=== PATIENT | male | born 1985 | race Caucasian/White ===

== ENCOUNTER 2020-04-20 08:27 | Outpatient (CLI) | payer OTHER, SELFPAY ==
--- NOTE | 2020-05-12 09:50 | SLEEP_ITS ---
HOME SLEEP TEST DATE OF STUDY: 04/20/2020 ORDERING PHYSICIAN: Dr. Royce Perez. REASON FOR THE STUDY: KOFFI. This patient is a 34-year-old man 5 feet 6 inches tall, weighing 250 pounds with a body mass index of 40.3. He has problems waking up during the night and in the next day he is extremely tired. He has a difficult time falling asleep, difficult time waking in the morning. He has tried sleeping pills, but it just made his next day worse. He constantly snores and it is constantly loud enough that others complain about it. He occasionally awakens at night with heartburn, belching, or coughing. He occasionally awakens at night feeling short of breath. He occasionally has trouble sleeping with a cold, rarely wakes up gasping for breath at night, constantly has breathing problems at night observed by others and constantly sweats excessively at night. He occasionally notices his heart pounding or beating irregularly at night. He frequently falls asleep during the day occasionally involuntarily, occasionally while driving, rarely during physical effort. He does not have loss of muscle tone with strong emotion. He occasionally has daytime difficulties due to excessive sleepiness. He works for [employer]. He rarely feels paralyzed on waking or falling asleep and occasionally has vivid dreamlike scenes upon awakening or falling asleep. He is rarely afraid to go to sleep. He occasionally has nightmares, occasionally remembers his dreams. He constantly has racing thoughts. He occasionally feels sad, depressed, and anxious. He frequently has muscular tension. He occasionally notices parts of his body jerking and occasionally kicks at night. He occasionally has crawly achy feelings in his legs. He rarely has leg pain at night. He rarely has morning jaw pain. He frequently grinds his teeth during sleep. He frequently is bothered by pain during the day, occasionally is awakened by pain at night, frequently wakes up feeling stiff in the morning and occasionally with sore achy muscles and occasionally with pain in the neck and spine. He has fatigue, memory problems, concentration difficulties, bowel disturbances, nightmares. He goes to bed at midnight, takes a few hours to fall asleep, typically wakes twice at night, stays awake for few hours. He will listen to the Bible or Sermons or put a movie on. He wakes in the morning between 6:30 and 9 a.m. On the weekends, he will sleep in, later on Monday and Monday, he is up for latter day. He does take naps. A short nap is not refreshing. He is usually drowsy in the morning for 1 hour or longer. MEDICAL COMORBIDITIES: Diabetes, depression, acid reflux, seasonal allergies, hypothyroidism, asthma, hyperlipidemia. MEDICATIONS: Bupropion 100 mg twice a day, clonidine 0.1 mg twice a day. Lamotrigine 100 mg daily. Levothyroxine 25 mcg daily. [place] CR 450 mg daily and 300 mg h.s., pantoprazole 40 mg daily, propranolol 20 mg b.i.d., Ziprasidone 40 mg b.i.d. HABITS: Previously smoked tobacco. Caffeine, a few fountain sodas daily. No alcohol or recreational drugs. DESCRIPTION OF THE STUDY: On the Roff Sleepiness Scale, his score is 15. This was conducted as an unattended type 3 portable home sleep test using 4 channel monitoring including respiratory effort channel, snoring channel, oxygen saturation channel, and heart rate channel. This study was scored using [facility] guidelines. The duration of the test was 8 hours 4 minutes. The apnea- hypopnea index is 17, consistent with moderate obstructive sleep apnea. Oxygen desaturation index is 13. The lowest desaturation is 80%. The patient had 79 apneas, the majority of these 81% or 64 apneas were obstructive, 16% or 13 apneas were central, 3% or 2 apneas were mixed. He
== END 2020-04-20 08:28 | disposition home or self-care (01) ==
LOC: ANHCSM 08:28
PROVIDERS: Visit Provider Student in an Organized Health Care Education/Training Program
DX: G47.33 Obstructive sleep apnea (adult) (pediatric) (principal); G47.19 Other hypersomnia
CPT/HCPCS: 95806

== ENCOUNTER 2020-06-22 00:35 | Outpatient (CLI) | payer OTHER, SELFPAY ==
[2020-06-22 20:57] LABS: SARS-CoV-2 RNA PCR Negative
== END 2020-06-22 00:36 | disposition home or self-care (01) ==
LOC: ANHCOVIDDT 00:35
PROVIDERS: Visit Provider Internal Medicine Critical Care Medicine
DX: R68.89 Other general symptoms and signs (principal); Z20.828 Contact with and (suspected) exposure to other viral communicable diseases
CPT/HCPCS: 87635; C9803; U0003

== ENCOUNTER 2020-06-24 08:45 | Outpatient (CLI) | payer OTHER, SELFPAY ==
--- NOTE | 2020-07-13 13:38 | WPDSLEEPSTUD ---
Sleep Study Date of Study: 06/24/20 Ordering Provider: Royce Perez MD Interpreting Physician: Maria Victoria Ellis MD Sleep Study Type: CPAP Titration Height: 1.68 m Weight: 113.398 kg Body Mass Index: 40.3 Neck Circumference: 44.45 cm [place]: 15 Reason for Sleep Study home sleep test 04/20/2020 with with moderate obstructive sleep apnea Sleep History Marlon Olsen is a 34 year old man with KOFFI diagnosed on a home sleep test 04/20/2020 with an AHI 17, 80% of the apneas scored as obstructive. He has other complaints including uncomfortable feelings in his legs at night suggestive of restless legs syndrome. He present now for a CPAP titration. He has problems waking up during the night and in the next day he is extremely tired. He has a difficult time falling asleep, difficult time waking in the morning. He has tried sleeping pills, but it just made his next day worse. He constantly snores and it is constantly loud enough that others complain about it. He occasionally awakens at night with heartburn, belching, or coughing. He occasionally awakens at night feeling short of breath. He occasionally has trouble sleeping with a cold, rarely wakes up gasping for breath at night, constantly has breathing problems at night observed by others and constantly sweats excessively at night. He occasionally notices his heart pounding or beating irregularly at night. He frequently falls asleep during the day occasionally involuntarily, occasionally while driving, rarely during physical effort. He does not have loss of muscle tone with strong emotion. He occasionally has daytime difficulties due to excessive sleepiness. He works for [employer]. He rarely feels paralyzed on waking or falling asleep and occasionally has vivid dreamlike scenes upon awakening or falling asleep. He is rarely afraid to go to sleep. He occasionally has nightmares, occasionally remembers his dreams. He constantly has racing thoughts. He occasionally feels sad, depressed, and anxious. He frequently has muscular tension. He occasionally notices parts of his body jerking and occasionally kicks at night. He occasionally has crawly achy feelings in his legs. He rarely has leg pain at night. He rarely has morning jaw pain. He frequently grinds his teeth during sleep. He frequently is bothered by pain during the day, occasionally is awakened by pain at night, frequently wakes up feeling stiff in the morning and occasionally with sore achy muscles and occasionally with pain in the neck and spine. He has fatigue, memory problems, concentration difficulties, bowel disturbances, nightmares. He goes to bed at midnight, takes a few hours to fall asleep, typically wakes twice at night, stays awake for few hours. He will listen to the Bible or Sermons or put a movie on. He wakes in the morning between 6:30 and 9 a.m. On the weekends, he will sleep later on Monday. On Monday, he is up for early for [place]. He does take naps. A short nap is not refreshing. He is usually drowsy in the morning for 1 hour or longer. HABITS: Previously smoked tobacco. Caffeine, a few fountain sodas daily. No alcohol or recreational drugs. [facility] Past Medical History Medical History (Updated 07/13/20 @ 14:15 by Maria Victoria Ellis MD) Acid reflux Asthma Depression Diabetes Hyperlipidemia Hypothyroid Obstructive sleep apnea Social History Social History (Updated 07/13/20 @ 13:56 by Maria Victoria Ellis MD) Smoking status: Former smoker Alcohol intake: never Medications Medications: Bupropion 100 mg twice a day clonidine 0.1 mg twice a day. Lamotrigine 100 mg daily. Levothyroxine 25 mcg daily. [place] CR 450 mg daily and 300 mg h.s. pantoprazole 40 mg daily, propranolol 20 mg b.i.d. Ziprasidone 40 mg b.i.d. Sleep Procedure This test was performed using the [facility] multiple channel system including EOG, EEG, submental EMG, EKG, nasal and oral airflow using thermistors and nasal pressure senso
[2020-07-13 14:23] VITALS: BMI 40.3
== END 2020-06-24 08:46 | disposition home or self-care (01) ==
LOC: ANHCSM 08:46
PROVIDERS: Visit Provider Student in an Organized Health Care Education/Training Program
DX: G47.33 Obstructive sleep apnea (adult) (pediatric) (principal)
CPT/HCPCS: 95811

== ENCOUNTER 2020-11-09 12:49 | Emergency (ER) | payer OTHER, SELFPAY ==
[2020-11-09] VITALS (13 sets, daily range): BP systolic 112–147; BP diastolic 58–99; PULSE 78–89; RESP 16–18; TEMP 36–36.8; O2SAT 96–99
--- NOTE | ~2020-11-09 | CT_ITS ---
EXAMINATION: CT abdomen pelvis w con DATE: 11/09/2020 19:27 INDICATION: Abdominal pain and vomiting TECHNIQUE: Computed tomography (CT) of the abdomen and pelvis was performed with 100 cc Omnipaque 350 intravenous contrast. Automated exposure control and iterative reconstruction technique were employe d. Exam dose: 1129.88 mGy-cm total exam DLP. COMPARISON: None. FINDINGS: The lung bases are clear. Normal heart size. No pericardial or pleural effusion. There is hepatic steatosis. No hepatic space-occupying mass lesion is evident. The gallbladder appear s unremarkable. No bile duct or pancreatic duct dilatation. No pancreatic mass lesion or calcificatio n. Normal splenic size. Normal morphology of the adrenal glands. No renal mass lesion or urinary tract calculus or hydroureteronephrosis. The urinary bladder is relat ively evacuated, essentially unremarkable. Prostate gland and seminal vesicles are unremarkable. Normal caliber of the abdominal aorta. No intraperitoneal or retroperitoneal or pelvic mass lesion or adenopathy or ascites. Normal appendix. Mild colonic diverticulosis; no CT evidence of diverticulitis. No bowel obstruction, bowel wall thickening, pneumatosis or intraperitoneal free air. No suspicious osteolytic or osteoblastic lesions are noted. IMPRESSION: No bowel obstruction or free air Normal appendix Mild colonic diverticulosis Hepatic steatosis Reviewed, dictated and finalized at [facility]. Reviewed, dictated and finalized at [facility].
[2020-11-09 13:43] LABS: Alanine Aminotransferase 37 U/L (4-50); Albumin Level 5.1 g/dL (3.5-5.1); Alkaline Phosphatase 77 U/L (38-126); Anion Gap 12 mmol/L (8-16); Aspartate Amino Transferase 30 U/L (17-59); Bilirubin,Total 1.7 mg/dL (0.2-1.3); Blood Urea Nitrogen 15 mg/dL (9-20); Calcium 9.5 mg/dL (8.4-10.2); Carbon Dioxide 25 mmol/L (22-30); Chloride 103 mmol/L (98-107); Estimated CRCL calculation 128 ml/min; Estimated Glomerular Filt Rate > 60; Glucose 113 mg/dL (75-110); Lipase 90 U/L (23-300); Potassium 4.3 mmol/L (3.4-5.0); Sodium 140 mmol/L (137-145)
[2020-11-09 18:29] LABS: Basophils Absolute Auto 0.1 K/mm3 (0.0-0.1); Basophils Percent Auto 0.4 % (0.2-1.2); Eosinophils Absolute Auto 0.2 K/mm3 (0-0.3); Eosinophils Percent Auto 1.5 % (0-4.4); Hematocrit 49.1 % (42.0-52.0); Hemoglobin 17.4 g/dL (14.0-18.0); Immature Granulocyte Absolute 0.03 K/mm3 (0.00-0.031); Immature Granulocyte Percent A 0.2 % (0-0.5); Lymphocytes Absolute Auto 1.81 K/mm3 (0.9-3.2); Lymphocytes Percent Auto 14.7 % (18.3-44.2); Mean Corpuscular HGB Conc 35.4 g/dl (32-36); Mean Corpuscular Hemoglobin 31.5 pg (26-34); Mean Corpuscular Volume 88.8 fl (80-100); Mean Platelet Volume 10.4 fl (7.4-10.4); Monocytes Absolute Auto 0.9 K/mm3 (0.1-0.6); Monocytes Percent Auto 7.3 % (2.6-8.5); Neutrophils Absolute Auto 9.4 K/mm3 (1.3-6.7); Neutrophils Percent Auto 75.9 % (45.5-73.1); Platelet Count Result 353 k/mm3 (150-375); Red Blood Count 5.53 M/mm3 (4.6-6.20); Red Cell Distribution Width 12.6 % (11.5-14.5); White Blood Count 12.4 K/mm3 (4.5-10.0)
--- NOTE | 2020-11-09 18:46 | ED.NAVMDI ---
HPI - Nausea/Vomiting/Diarrhea General Chief complaint: Nausea/Vomiting/Diarrhea Stated complaint: Vomiting Time Seen by Provider: 11/09/20 18:10 Source: patient Mode of arrival: ambulatory Limitations: no limitations History of Present Illness HPI Narrative: This is a 35-year-old male that presents the emergency department for nausea and vomiting. Reports he had recently been diagnosed with herpes and was placed on valacyclovir. Reports this medication was making him nauseous and vomit. Reports after he stopped it that did resolve. Reports his rash has resolved. Reports again today though, that he started having more vomiting. Reports upper abdominal pain. Reports similar occurrences in the past and that he has had an EGD and colonoscopy. There was findings of GERD. He does not take his reflux medication. He also recently started smoking marijuana. Denies fever, or dysuria. Related Data Home Medications Medication Instructions Recorded Confirmed bupropion HCl 300 mg PO DAILY 11/09/20 clonidine HCl 0.1 mg PO DAILY 11/09/20 fluconazole 100 mg PO DAILY 11/09/20 valacyclovir 100 mg PO DAILY 11/09/20 Allergies Allergy/AdvReac Type Severity Reaction Status Date / Time Sulfa (Sulfonamide Allergy Rash Verified 11/09/20 18:28 Antibiotics) vancomycin Allergy Rash Verified 11/09/20 18:29 Review of Systems Review of Systems: Narrative: CONSTITUTIONAL: Denies fever GASTROINTESTINAL: Reports abdominal pain, nausea, vomiting. Denies diarrhea. GENITOURINARY: Denies dysuria All systems reviewed & are unremarkable except as noted in HPI and below PMFSH Past Medical History Medical History (Updated 11/09/20 @ 21:23 by Jamila Landeros PA-C) Acid reflux Asthma Depression Diabetes Hyperlipidemia Hypothyroid Obstructive sleep apnea Social History Social History (Updated 11/09/20 @ 18:48 by Jamila Landeros PA-C) Smoking status: Former smoker Alcohol intake: never Substance use: current Substance use type: marijuana Exam Narrative: Exam Narrative: GENERAL: Well-appearing, obese, and in no acute distress. HEAD: Normocephalic, atraumatic. EYES: EOMI. CHEST: Clear to auscultation. No respiratory distress. No wheezes rales or rhonchi HEART: Regular rate and rhythm. No murmur heard. Normal peripheral pulses. ABDOMEN: Soft, nondistended, normal active bowel sounds. Mild tenderness to palpation throughout the abdomen, without guarding EXTREMITIES: Normal range of motion. No edema. SKIN: Warm, dry, no rash. NEURO: No focal deficits. Alert and oriented x3. PSYCH: Normal mood and affect Course Vital Signs Vital signs: Vital Signs Temperature 96.8 F L 11/09/20 13:13 Pulse Rate 89 11/09/20 13:13 Respiratory Rate 16 11/09/20 13:13 Blood Pressure 147/99 H 11/09/20 13:13 Pulse Oximetry 97 11/09/20 13:13 Temperature 98.2 F 11/09/20 18:16 Pulse Rate 78 11/09/20 18:16 Respiratory Rate 18 11/09/20 18:16 Blood Pressure 122/78 11/09/20 19:01 Pulse Oximetry 99 11/09/20 19:01 MDM - Nausea/Vomiting/Diarrhea MDM Narrative Medical decision making narrative: Patient presents the emergency department for abdominal pain, nausea and vomiting. He is afebrile and nontoxic-appearing. CBC with mild leukocytosis to 12.4. Metabolic panel and lipase without concerning findings. UA without evidence of infection. CT scan of the abdomen and pelvis is without acute findings. Patient updated on case findings. No further episodes of vomiting in the ED. Patient was instructed to follow-up with his review rn. He was given warnings to return to the ER Lab Data Attestation: I reviewed the patient's lab results. Result diagrams: 11/09/20 18:22 11/09/20 13:22 Labs: Lab Results 11/09/20 11/09/20 11/09/20 Range/Units 13:22 18:22 19:14 WBC 12.4 H (4.5-10.0) K/mm3 RBC 5.53 (4.6-6.20) M/mm3 Hgb 17.4 (14.0-18.0) g/dL Hct 49.1 (42
[2020-11-09] MEDS: ONDANSETRON INJ 4 MG/2 ML VIAL IV PUSH (18:51)
[2020-11-09] MEDS: FAMOTIDINE 20 MG/2 ML VIAL IV PUSH (18:51)
[2020-11-09] MEDS: SODIUM CHLORIDE 0.9% IV 1,000 ML 999 ML IV CONT (18:52)
[2020-11-09 19:40] LABS: Add Urine Microscopic? YES; Appearance Urine Clear (Clear); Bilirubin Urine Negative (Negative); Blood Urine Negative (Negative); Color Urine Yellow (Yellow); Glucose Urine UA Negative (Negative); Ketones Urine Negative (Negative); Leukocyte Esterase Ur Negative LEU/UL (Negative); Nitrate Urine Negative (Negative); Protein Urine 1+ mg/dL (Negative); Specific Grav Ur 1.012 (1.001-1.035); Urobilinogen Urine Negative mg/dL (<2.0)
[2020-11-09 19:45] LABS: Amphetamine Screen Urine Negative (Negative); Barbiturate Screen Urine Negative (Negative); Benzodiazepines Screen Urine Negative (Negative); Cannabinoid Screen Urine Positive (Negative); Cocaine Screen Urine Negative (Negative); Methadone Screen Urine Negative (Negative); Opiate Screen Urine Negative (Negative); Phencyclidine Screen Urine Negative (Negative)
[2020-11-09 19:52] LABS: RBC Urine 0-2 /hpf (0-2); WBC Urine 0-3 /hpf (0-3)
[2020-11-09 19:54] LABS: Bacteria Urine Trace /hpf
== END 2020-11-09 21:53 | disposition home or self-care (01) ==
PROVIDERS: Emergency Medicine; Physician Assistant; Emergency Provider Emergency Medicine
DX: R11.2 Nausea with vomiting, unspecified (principal); B00.9 Herpesviral infection, unspecified; K21.9 Gastro-esophageal reflux disease without esophagitis; J45.909 Unspecified asthma, uncomplicated; E11.9 Type 2 diabetes mellitus without complications; E78.5 Hyperlipidemia, unspecified; E03.9 Hypothyroidism, unspecified; G47.33 Obstructive sleep apnea (adult) (pediatric); Z87.891 Personal history of nicotine dependence; K57.90 Diverticulosis of intestine, part unspecified, without perforation or abscess without bleeding; K76.0 Fatty (change of) liver, not elsewhere classified
CPT/HCPCS: 36415; 74177; 80053; 80307; 81001; 83690; 85025; 96361; 96374; 96375; 99284; J2405; J7030; Q9967

== ENCOUNTER 2021-03-04 14:47 | Emergency (ER) | payer OTHER, SELFPAY ==
[2021-03-04 14:56] VITALS: BP 97/68; PULSE 60; RESP 18; TEMP 36.7; O2SAT 100
--- NOTE | 2021-03-04 15:26 | ED.NAVMDI ---
HPI - Nausea/Vomiting/Diarrhea General Chief complaint: Nausea/Vomiting/Diarrhea Stated complaint: VOMITING Source: patient and RN notes reviewed Mode of arrival: ambulatory History of Present Illness HPI Narrative: This is a 35-year-old male who presented to urgent care with complaints of nausea vomiting and diarrhea that he has had last 24 hours. Patient did not take anything at home to relieve his symptoms. He still does have nausea vomiting and diarrhea with little improvement. The patient denies SOB, CP, palpitation, extremity numbness, lightheadedness, dizziness, constipation, diarrhea, abdominal pain chills, or fever. MD elicited complaint: nausea, vomiting and diarrhea Related Data Home Medications Medication Instructions Recorded Confirmed bupropion HCl 300 mg PO DAILY 11/09/20 clonidine HCl 0.1 mg PO DAILY 11/09/20 fluconazole 100 mg PO DAILY 11/09/20 valacyclovir 100 mg PO DAILY 11/09/20 Allergies Allergy/AdvReac Type Severity Reaction Status Date / Time Sulfa (Sulfonamide Allergy Rash Verified 11/09/20 18:28 Antibiotics) vancomycin Allergy Rash Verified 11/09/20 18:29 Review of Systems Review of Systems: A 14 organ system Review of Systems was performed and pertinent positives included in the HPI, otherwise remaining ROS is negative. [facility] Past Medical History Medical History (Updated 03/04/21 @ 15:25 by SHI Foley) Acid reflux Asthma Depression Diabetes Hyperlipidemia Hypothyroid Obstructive sleep apnea Family History Family History (Updated 03/04/21 @ 15:30 by SHI Foley) Other Family history non-contributory Social History Social History (Updated 11/09/20 @ 18:48 by Jamila Landeros PA-C) Smoking status: Former smoker Alcohol intake: never Substance use: current Substance use type: marijuana Exam Narrative: GENERAL: This is a well-nourished, well-developed patient, in no apparent distress. HEAD: normocephalic, atraumatic. EYES: PERRL. Sclera clear/white. Vision is grossly intact. EARS: External ears normal, auditory canals clear and without drainage, TMs normal without perforation. Hearing grossly intact. NOSE: External nose normal with no obvious nasal discharge, nares without redness, no rhinorrhea. THROAT: Mucous membranes moist, posterior pharynx clear. NECK: Neck supple, non-tender without lymphadenopathy, masses or thyromegaly. CARDIOVASCULAR: Regular rate and rhythm without murmurs, gallops, or rubs. RESPIRATORY: Clear to auscultation. Breath sounds equal bilaterally. No wheezes, rales, or rhonchi. GASTROINTESTINAL: Abdomen soft, non-tender, nondistended. Bowel sounds are active. No hepato-splenomegaly, or palpable masses. No guarding. SKIN: warm, intact with no suspicious lesions or rash, good texture and turgor. NEURO: awake, alert, and oriented to person, place and time. There were no obvious focal neurologic abnormalities. Steady gait EXTREMITIES: Normal range of motion. No edema. No calf tenderness. Negative Homans sign bilaterally. BACK: Nontender without deformity or crepitance. No flank tenderness. Course Course Emergency Course: Patient will discharge with Zofran and Imodium instructed to stay hydrated and get plenty rest Vital Signs Vital signs: Vital Signs Temperature 98.0 F 03/04/21 14:56 Pulse Rate 60 03/04/21 14:56 Respiratory Rate 18 03/04/21 14:56 Blood Pressure 97/68 L 03/04/21 14:56 Pulse Oximetry 100 03/04/21 14:56 Temperature 98.0 F 03/04/21 14:56 Pulse Rate 60 03/04/21 14:56 Respiratory Rate 18 03/04/21 14:56 Blood Pressure 97/68 L 03/04/21 14:56 Pulse Oximetry 100 03/04/21 14:56 MDM - Nausea/Vomiting/Diarrhea Differential Diagnosis Differential diagnosis: Likely traveler's diarrhea, food poisoning and gastroenteritis Discharge Plan Discharge Clinical Impression: Gastroenteritis Patient Disposition: Home, Self-Care Condition: Stable Instructions:
== END 2021-03-04 15:45 | disposition home or self-care (01) ==
PROVIDERS: Emergency Provider Nurse Practitioner; PCP Emergency Medicine
DX: K52.9 Noninfective gastroenteritis and colitis, unspecified (principal); Z87.891 Personal history of nicotine dependence; K21.9 Gastro-esophageal reflux disease without esophagitis; J45.909 Unspecified asthma, uncomplicated; E11.9 Type 2 diabetes mellitus without complications; E78.5 Hyperlipidemia, unspecified; E03.9 Hypothyroidism, unspecified; G47.30 Sleep apnea, unspecified
CPT/HCPCS: 99213; G0463

== ENCOUNTER 2021-07-06 08:15 | Outpatient (CLI) | payer OTHER, SELFPAY ==
--- NOTE | ~2021-07-06 | XR_ITS ---
EXAMINATION: XR chest 2V DATE: 07/06/2021 08:31 INDICATION: Tobacco use TECHNIQUE: PA and lateral views of the chest are obtained. COMPARISON: None available FINDINGS: The lungs are free of acute opacities. There is no pleural effusion or pneumothorax. The ca rdiomediastinal silhouette is normal. The visualized bones and soft tissues are unremarkable. IMPRESSION: 1. No acute cardiopulmonary abnormality. Reviewed, dictated and finalized at [facility]. [employer]
== END 2021-07-06 08:16 | disposition home or self-care (01) ==
LOC: ANHIMG 08:19
PROVIDERS: PCP Emergency Medicine; Visit Provider Emergency Medicine
DX: F17.200 Nicotine dependence, unspecified, uncomplicated (principal)
CPT/HCPCS: 71046

== ENCOUNTER 2021-08-05 15:11 | Emergency (ER) | payer OTHER, SELFPAY ==
--- NOTE | ~2021-08-05 | XR_ITS ---
EXAMINATION: XR humerus RT DATE: 08/05/2021 15:32 INDICATION: Right upper arm foreign body. Right upper arm swelling. TECHNIQUE: 2 views of right humerus were obtained. COMPARISON: None. FINDINGS: Bone alignment is normal. No fracture. Glenohumeral joint is normal. 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 IMPRESSION: 1. No radiopaque foreign body. Reviewed, dictated and finalized at [facility]. ING TECH
[2021-08-05 15:13] VITALS: BP 105/55; PULSE 78; RESP 14; TEMP 36.6; O2SAT 100
--- NOTE | 2021-08-05 16:11 | ED.GENADULT ---
HPI - General Adult General Chief complaint: Skin/Abscess/Foreign Body Stated complaint: broken needle in arm Time Seen by Provider: 08/05/21 15:19 Source: patient Mode of arrival: ambulatory Limitations: no limitations History of Present Illness HPI narrative: Patient is 35 years old he came to the emergency room, complaining of losing the needle after injecting drugs in the right arm, prior to arrival. Patient denies other symptoms. Related Data Home Medications Medication Instructions Recorded Confirmed bupropion HCl 300 mg PO DAILY 11/09/20 clonidine HCl 0.1 mg PO DAILY 11/09/20 fluconazole 100 mg PO DAILY 11/09/20 valacyclovir 100 mg PO DAILY 11/09/20 Allergies Allergy/AdvReac Type Severity Reaction Status Date / Time Sulfa (Sulfonamide Allergy Rash Verified 08/05/21 15:16 Antibiotics) vancomycin Allergy Rash Verified 08/05/21 15:16 Review of Systems Review of Systems: CONSTITUTIONAL: Denies fever, chills, or sweats. EYES: Denies visual changes, redness, or discharge. ENT: Denies rhinorrhea, congestion, sore throat, or otalgia. CARDIOVASCULAR: Denies chest pain, palpitations, or edema. RESPIRATORY: Denies cough or dyspnea. GASTROINTESTINAL: Denies abdominal pain, nausea, vomiting, or diarrhea. GENITOURINARY: Denies dysuria or hematuria. SKIN: Denies rash or itching. MUSCULOSKELETAL: Denies back pain, joint pain, or myalgia. NEUROLOGIC: Denies headache, numbness, or weakness. PSYCHIATRIC: Denies anxiety or depression. PMFSH Past Medical History Medical History Acid reflux Asthma Depression Diabetes Hyperlipidemia Hypothyroid Obstructive sleep apnea Family History Family History Other Family history non-contributory Social History Social History Smoking status: Former smoker Alcohol intake: never Substance use: current Substance use type: marijuana Exam Narrative: General appearance: Well-developed, well-nourished Skin: Normal color right arm exam showed a needle devon, no no foreign body under the skin, no erythema, no rash, no swelling no tenderness Chest and respiratory: Airway patent, no respiratory distress, no accessory muscle use Heart: Regular rate/rhythm Abdomen: Soft, nontender, no organomegaly, quiet bowel sounds Vascular: Normal peripheral pulses, normal capillary refill. Musculoskeletal: Normal range of motion, nontender back Neurologic: Alert and oriented ?3, Course Course Emergency Course: Stable Vital Signs Vital signs: Vital Signs Temperature 36.6 C 08/05/21 15:13 Pulse Rate 78 08/05/21 15:13 Respiratory Rate 14 08/05/21 15:13 Blood Pressure 105/55 L 08/05/21 15:13 Pulse Oximetry 100 08/05/21 15:13 Temperature 36.6 C 08/05/21 15:13 Pulse Rate 78 08/05/21 15:13 Respiratory Rate 14 08/05/21 15:13 Blood Pressure 105/55 L 08/05/21 15:13 Pulse Oximetry 100 08/05/21 15:13 Medical Decision Making MDM Narrative Medical decision making narrative: Physical exam and x-ray showed no foreign body at the needle site. Retractable needle versus losing the needle on the floor during the procedure of injection is my concern. Vital Signs Vital Signs: Vital Signs Temperature 36.6 C 08/05/21 15:13 Pulse Rate 78 08/05/21 15:13 Respiratory Rate 14 08/05/21 15:13 Blood Pressure 105/55 L 08/05/21 15:13 Pulse Oximetry 100 08/05/21 15:13 Temperature 36.6 C 08/05/21 15:13 Pulse Rate 78 08/05/21 15:13 Respiratory Rate 14 08/05/21 15:13 Blood Pressure 105/55 L 08/05/21 15:13
== END 2021-08-05 16:42 | disposition home or self-care (01) ==
PROVIDERS: Emergency Provider Emergency Medicine; PCP Emergency Medicine
DX: Z04.89 Encounter for examination and observation for other specified reasons (principal)
CPT/HCPCS: 73060; 99283

== ENCOUNTER → 2021-09-08 02:11 | Outpatient (CLI) | payer OTHER, SELFPAY ==
[2021-09-08 16:42] LABS: SARS-CoV-2 RNA PCR Negative
== END ==
PROVIDERS: PCP Emergency Medicine; Visit Provider Emergency Medicine
DX: R68.89 Other general symptoms and signs (principal); Z20.822 Contact with and (suspected) exposure to COVID-19
CPT/HCPCS: C9803; U0003; U0005

== ENCOUNTER → 2021-10-13 00:14 | Outpatient (CLI) | payer OTHER, SELFPAY ==
[2021-10-13 11:13] LABS: SARS-CoV-2 RNA PCR Negative
== END ==
PROVIDERS: PCP Emergency Medicine; Visit Provider Emergency Medicine
DX: R19.7 Diarrhea, unspecified (principal); R11.10 Vomiting, unspecified; Z20.822 Contact with and (suspected) exposure to COVID-19
CPT/HCPCS: C9803; U0003; U0005

== ENCOUNTER → 2023-08-01 14:12 | Outpatient (CLI) | payer OTHER, SELFPAY ==
--- NOTE | ~2023-08-01 | XR_ITS ---
XR chest 2V DATE: 08/01/2023 14:32 INDICATION: Tobacco use and vaping TECHNIQUE: 2 views COMPARISON: None FINDINGS: Normal heart size. No hilar or mediastinal enlargement. The lungs are hyperinflated but dc ar of infiltrate or consolidation. No pleural effusion or pulmonary vascular congestion or pneumothor ax is detected. IMPRESSION: Bilateral hyperinflation; no active cardiopulmonary disease Reviewed, dictated and finalized at [facility]. CARDIAC
== END ==
PROVIDERS: PCP Emergency Medicine; Visit Provider Emergency Medicine
DX: J98.4 Other disorders of lung (principal); F17.290 Nicotine dependence, other tobacco product, uncomplicated
CPT/HCPCS: 71046

== ENCOUNTER 2023-10-17 13:54 | Emergency (ER) | payer OTHER, SELFPAY ==
--- NOTE | ~2023-10-17 | CT_ITS ---
EXAMINATION: CT abdomen pelvis w con DATE: 10/17/2023 16:01 INDICATION: Right-sided abdominal pain, nausea and diarrhea TECHNIQUE: Computed tomography (CT) of the abdomen and pelvis was performed with 100 mL Omnipaque-350 intravenous contrast. Automated exposure control and iterative reconstruction technique were employe d. The dose-length product was 1435.72 mGy-cm. COMPARISON: 11/09/2020 FINDINGS: Mild atelectasis at the anterior lingula and right middle lobe. Heart size is normal. No pericardial or pleural effusion. Prominent diffuse hepatic steatosis with focal sparing along the gallbladder fos sa. Gallbladder, spleen, pancreas, bilateral adrenal glands and kidneys are normal. There are few sca ttered colonic diverticula predominantly along the descending colon without adjacent inflammation pre senting to suggest diverticulitis. Small bowel and appendix are normal. Bladder is normal. No free in traperitoneal gas or fluid. No pathologically enlarged abdominal or pelvic lymphadenopathy. Bones are unremarkable. IMPRESSION: 1. No acute intra-abdominal/pelvic process. 2. Diffuse hepatic steatosis. Reviewed, dictated and finalized at location A.
[2023-10-17 14:19] VITALS: BP 127/70; PULSE 99; RESP 18; TEMP 36.6; O2SAT 100
--- NOTE | 2023-10-17 14:35 | ED.ABDPAIN ---
HPI - Abdominal Pain General Chief Complaint: Abdominal Pain <NIKKI Shearer Last Filed: 10/17/23 14:41> Stated Complaint: abd pain <NIKKI Shearer Last Filed: 10/17/23 14:41> Time Seen by Provider: 10/17/23 14:35 <NIKKI Shearer Last Filed: 10/17/23 14:41> Focused HPI: Patient is a 38 y/o male who presents to the ED with c/o abdominal pain. Patient reports he has been sick since Monday with nausea, diarrhea, right-sided abdominal pain. He has been taking ibuprofen and Imodium with minimal relief. Also reports subjective fevers, cough for the last few months. Denies any vomiting, rectal bleeding, melena. 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 Currently in outpatient treatment. Has been clean for 3 months, 27 days. GENERAL: Well-appearing, well-nourished, and in no acute distress. HEAD: Normocephalic, atraumatic. CHEST: Clear to auscultation. ?No respiratory distress. HEART: Regular rate and rhythm.? ABD: Abdomen somewhat protuberant, soft, tenderness throughout right mid and upper abdomen. NEURO: ?Alert and oriented x3. Patient screened in triage and initial orders placed.? ?Additional care and disposition to be based upon?diagnostic testing and treatment. <NIKKI Shearer Last Filed: 10/17/23 14:41> Source: patient <NIKKI Shearer Last Filed: 10/17/23 14:41> Mode of arrival: ambulatory <NIKKI Shearer Last Filed: 10/17/23 14:41> Limitations: no limitations <NIKKI Shearer Last Filed: 10/17/23 14:41> Related Data Home Medications: Home Medications Medication Instructions Recorded Confirmed bupropion HCl 300 mg 24 hr tablet, 300 mg PO DAILY 11/09/20 extended release clonidine HCl 0.1 mg tablet 0.1 mg PO DAILY 11/09/20 fluconazole 100 mg tablet 100 mg PO DAILY 11/09/20 valacyclovir 1 gram tablet 100 mg PO DAILY 11/09/20 <Sangeetha Nicholas PA-C - Last Filed: 10/17/23 14:41> Allergies/Adverse Reactions: Allergies Allergy/AdvReac Type Severity Reaction Status Date / Time Sulfa (Sulfonamide Allergy Rash Verified 10/17/23 15:36 Antibiotics) vancomycin Allergy Rash Verified 10/17/23 15:36 <Sangeetha Nicholas PA-C - Last Filed: 10/17/23 14:41> Review of Systems Review of Systems: All systems reviewed & are unremarkable except as noted in HPI and below <Pravin Osuna MD - Last Filed: 10/19/23 21:30> [facility] Past Medical History Medical History: Medical History Acid reflux Asthma Depression Diabetes Hyperlipidemia Hypothyroid Obstructive sleep apnea <Sangeetha Nicholas PA-C - Last Filed: 10/17/23 14:41> Family History Family History: Family History Other Family history non-contributory <Sangeetha Nicholas PA-C - Last Filed: 10/17/23 14:41> Social History Social History: Social History Smoking status: Former smoker Alcohol intake: never Substance use: current Substance use type: marijuana <Sangeetha Nicholas PA-C - Last Filed: 10/17/23 14:41> Exam Narrative: APPEARANCE: Well appearing, no pain, no distress, well-nourished. HEAD: normocephalic, atraumatic. EYES: PERRLA/EOMI, conjunctivae clear. NECK: Supple. No adenopathy, no masses. RESPIRATORY: Airway patent, respirations nonlabored. Clear to auscultation bilaterally, no rales, rhonchi, wheezing. CARDIOVASCULAR: Regular rate and rhythm without murmurs rubs or gallops. ABDOMINAL: Soft, nontender, nondistended, normal bowel sounds MUSCULOSKELETAL: Moves all extremities. Strength/ROM intact, No edema, No calf tenderness. NEURO: Alert. Cranial nerves II through XII intact. Good gait. Good coordination SKIN: Warm, dry. Normal Color <Nicol Richards
[2023-10-17] MEDS: ACETAMINOPHEN 500 MG TABLET 1000 MG PO (15:03)
[2023-10-17 15:14] LABS: Basophils Absolute Auto 0.1 K/mm3 (0.0-0.1); Basophils Percent Auto 0.3 % (0.2-1.2); Eosinophils Absolute Auto 0.2 K/mm3 (0-0.3); Eosinophils Percent Auto 1.3 % (0-4.4); Hematocrit 46.8 % (42.0-52.0); Hemoglobin 15.8 g/dL (14.0-18.0); Immature Granulocyte Absolute 0.05 K/mm3 (0.00-0.031); Immature Granulocyte Percent A 0.3 % (0-0.5); Lymphocytes Absolute Auto 2.76 K/mm3 (0.9-3.2); Lymphocytes Percent Auto 18.8 % (18.3-44.2); Mean Corpuscular HGB Conc 33.8 g/dl (32-36); Mean Corpuscular Hemoglobin 30.6 pg (26-34); Mean Corpuscular Volume 90.7 fl (80-100); Mean Platelet Volume 10.3 fl (7.4-10.4); Monocytes Absolute Auto 0.8 K/mm3 (0.1-0.6); Monocytes Percent Auto 5.7 % (2.6-8.5); Neutrophils Absolute Auto 10.8 K/mm3 (1.3-6.7); Neutrophils Percent Auto 73.6 % (45.5-73.1); Platelet Count Result 305 k/mm3 (150-375); Red Blood Count 5.16 M/mm3 (4.6-6.20); Red Cell Distribution Width 12.7 % (11.5-14.5); White Blood Count 14.7 K/mm3 (4.5-10.0)
[2023-10-17 15:28] LABS: Alanine Aminotransferase 100 U/L (6-50); Albumin Level 4.8 g/dL (3.5-5.1); Alkaline Phosphatase 69 U/L (38-126); Anion Gap 9 mmol/L (8-16); Aspartate Amino Transferase 52 U/L (17-59); Blood Urea Nitrogen 7 mg/dL (9-20); Calcium 9.9 mg/dL (8.4-10.2); Carbon Dioxide 27 mmol/L (22-30); Chloride 105 mmol/L (98-107); Estimated CRCL calculation 116 ml/min; Estimated Glomerular Filt Rate > 60; Glucose 103 mg/dL (65-110); Lipase 98 U/L (23-300); Potassium 3.9 mmol/L (3.4-5.0); Sodium 141 mmol/L (137-145)
[2023-10-17 15:55] LABS: Influenza A QL RT-PCR Negative (Negative); Influenza B QL RT-PCR Negative (Negative); RSV RNA, RT-PCR Negative (Negative); SARS-CoV-2 RNA PCR Negative (Negative)
[2023-10-17 16:00] VITALS: BP 149/110; PULSE 94; RESP 16; O2SAT 97
[2023-10-17 16:15] VITALS: BP 116/80; PULSE 93; RESP 15; O2SAT 96
[2023-10-17 16:30] VITALS: BP 124/79; PULSE 95; RESP 16; O2SAT 97
[2023-10-17 16:45] VITALS: BP 119/78; PULSE 94; RESP 19; O2SAT 95
[2023-10-17 17:00] VITALS: BP 127/84; PULSE 94; RESP 14; O2SAT 98
== END 2023-10-17 17:32 | disposition home or self-care (01) ==
PROVIDERS: Physician Assistant; Emergency Provider Emergency Medicine; PCP Emergency Medicine
DX: R10.9 Unspecified abdominal pain (principal); R11.2 Nausea with vomiting, unspecified; R19.7 Diarrhea, unspecified; Z20.822 Contact with and (suspected) exposure to COVID-19; J45.909 Unspecified asthma, uncomplicated; E11.9 Type 2 diabetes mellitus without complications; E78.5 Hyperlipidemia, unspecified; E03.9 Hypothyroidism, unspecified; G47.33 Obstructive sleep apnea (adult) (pediatric); K21.9 Gastro-esophageal reflux disease without esophagitis; F32.A Depression, unspecified; Z87.891 Personal history of nicotine dependence; K76.0 Fatty (change of) liver, not elsewhere classified
CPT/HCPCS: 36415; 74177; 80053; 83690; 85025; 87637; 99284; A9270; Q9967

== ENCOUNTER 2023-10-30 16:38 | Emergency (ER) | payer MEDICAID, SELFPAY ==
--- NOTE | 2023-10-30 16:41 | ED.URI ---
HPI - URI/Sore Throat General Chief Complaint: Nausea/Vomiting/Diarrhea Stated Complaint: fever,nauseous Time Seen by Provider: 10/30/23 16:39 Source: patient Mode of arrival: ambulatory Limitations: no limitations History of Present Illness HPI Narrative: Marlon is a 38-year-old male patient presenting to the clinic today with complaints of sore throat, nauseous since, fever, and fatigue since last night. Temperature was 37.7? and degrees C in the clinic today. Temperature was 102? at home and she gave him Tylenol Related Data Home Medications Medication Instructions Recorded Confirmed bupropion HCl 300 mg 24 hr tablet, 300 mg PO DAILY 11/09/20 10/30/23 extended release clonidine HCl 0.1 mg tablet 0.1 mg PO DAILY 11/09/20 10/30/23 fluconazole 100 mg tablet 100 mg PO DAILY 11/09/20 10/30/23 valacyclovir 1 gram tablet 100 mg PO DAILY 11/09/20 10/30/23 bupropion HCl 300 mg 24 hr tablet, 300 mg PO DAILY 10/30/23 10/30/23 extended release ergocalciferol (vitamin D2) 1,250 1 unit PO WEEKLY 10/30/23 10/30/23 mcg (50,000 unit) capsule fluticasone propionate 50 1 spray intranasal BID 10/30/23 10/30/23 mcg/actuation nasal spray,suspension gabapentin 400 mg capsule 400 mg PO TID 10/30/23 10/30/23 pantoprazole 40 mg tablet,delayed 40 mg PO DAILY 10/30/23 10/30/23 release sertraline 100 mg tablet mg 10/30/23 Allergies Allergy/AdvReac Type Severity Reaction Status Date / Time Sulfa (Sulfonamide Allergy Rash Verified 10/30/23 16:42 Antibiotics) vancomycin Allergy Rash Verified 10/30/23 16:42 Review of Systems Review of Systems: Pertinent positives per HPI. Patient denies any rash, headache, visual changes, dizziness, shortness of breath, chest pain, palpitations, vomiting, diarrhea, constipation, abdominal pain, or any urinary issues. [facility] Past Medical History Medical History Acid reflux Asthma Depression Diabetes Hyperlipidemia Hypothyroid Obstructive sleep apnea Family History Family History Other Family history non-contributory Social History Social History Smoking status: Former smoker Alcohol intake: never Substance use: current Substance use type: marijuana Comments At the time of my signature, I reviewed and agree with the nursing past medical, surgical, social, and family history. There is no relevant family history pertinent to the patient complaint. Exam Narrative: General: Well-developed, morbidly obese, in no apparent distress Head: Normocephalic, atraumatic Eyes: Pupils equally round and reactive to light bilaterally, EOM intact, sclera and conjunctive clear, no discharge, lids normal Ears: TMs intact and congested, ear canals clear, no drainage, grossly hearing normal. Nose: Nares patent, clear nasal discharge, mild inflammation, no sinus tenderness. Mouth: Oropharynx red with bilateral tonsillar enlargement without lesions or masses, good dentition, MMM. Neck: Supple, trachea midline, enlargement of anterior cervical nodes, no thyroid masses or goiter palpable. Cardio: Regular rate and rhythm, s1 and s2 normal, no murmur appreciated. Resp: Clear to auscultation bilaterally anteriorly and posteriorly, no rhonchi, rales, wheezing or rubs Course Course Emergency Course: Portions of this record may have been created with voice recognition software. Level of Care: Express Care Visit Vital Signs Vital signs: Vital signs reviewed MDM - URI/Sore Throat MDM Narrative Medical decision making narrative: At the time of visit patient is resting comfortably on the exam table. Patient appears to be nontoxic. Appears acutely ill Labs: COVID, influenza, and strep test were performed. COVID and influenza testing was negative. Strep test was positive. Plan: I suspect patient has acute
[2023-10-30 16:50] VITALS: BP 104/76; PULSE 105; RESP 20; TEMP 37.7; O2SAT 97
== END 2023-10-30 17:20 | disposition home or self-care (01) ==
PROVIDERS: Emergency Provider Nurse Practitioner Family; PCP Emergency Medicine
DX: J02.0 Streptococcal pharyngitis (principal); Z20.822 Contact with and (suspected) exposure to COVID-19; K21.9 Gastro-esophageal reflux disease without esophagitis; J45.909 Unspecified asthma, uncomplicated; E11.9 Type 2 diabetes mellitus without complications; E78.5 Hyperlipidemia, unspecified; E03.9 Hypothyroidism, unspecified; Z87.891 Personal history of nicotine dependence; F12.90 Cannabis use, unspecified, uncomplicated; F32.A Depression, unspecified
CPT/HCPCS: 87426; 87804; 87880; 99213; G0463

== ENCOUNTER 2024-02-22 08:52 | Emergency (ER) | payer OTHER, SELFPAY ==
[2024-02-22 09:04] VITALS: BP 155/69; PULSE 97; RESP 16; TEMP 36.3; O2SAT 100
--- NOTE | 2024-02-22 09:14 | ED.URI ---
HPI - URI/Sore Throat General Chief Complaint: Upper Respiratory Infection Stated Complaint: Cough/Diarrhea Time Seen by Provider: 02/22/24 09:14 Source: patient, RN notes reviewed and old records reviewed Mode of arrival: ambulatory Limitations: no limitations History of Present Illness HPI Narrative: 38-year-old male presents to the [facility] with complaints of cough diarrhea, fatigue, headache. States yesterday that his primary prescribed him doxycycline, had a chest x-ray. Checks x-ray per medical record showed no acute findings. Patient reports feeling feverish. Reports an episode of diarrhea without abdominal pain. Significant cough noted on exam Related Data Home Medications Medication Instructions Recorded Confirmed clonidine HCl 0.1 mg tablet 0.1 mg PO DAILY 11/09/20 02/22/24 bupropion HCl 300 mg 24 hr tablet, 300 mg PO DAILY 10/30/23 02/22/24 extended release ergocalciferol (vitamin D2) 1,250 1 unit PO WEEKLY 10/30/23 02/22/24 mcg (50,000 unit) capsule fluticasone propionate 50 1 spray intranasal BID 10/30/23 02/22/24 mcg/actuation nasal spray,suspension gabapentin 400 mg capsule 400 mg PO TID 10/30/23 02/22/24 sertraline 100 mg tablet 100 mg PO DIRECTED 10/30/23 02/22/24 benztropine 1 mg tablet 1 mg PO DIRECTED 02/22/24 02/22/24 lamotrigine 200 mg tablet 200 mg PO DAILY 02/22/24 02/22/24 naltrexone microspheres 380 mg 4 mg IM DIRECTED 02/22/24 02/22/24 intramuscular suspension,extended release (Vivitrol) Allergies Allergy/AdvReac Type Severity Reaction Status Date / Time amoxicillin [From Augmentin] Allergy Rash Verified 02/22/24 09:17 clavulanic acid Allergy Rash Verified 02/22/24 09:17 [From Augmentin] Sulfa (Sulfonamide Allergy Rash Verified 02/22/24 08:58 Antibiotics) vancomycin Allergy Rash Verified 02/22/24 08:58 Review of Systems Review of Systems: All systems reviewed & are unremarkable except as noted in HPI and below Constitutional: Constitutional: Reports no additional constitutional complaints Eyes: Eyes: Reports no additional eye complaints ENT: Reports as per HPI Cardiovascular: Cardiovascular: Reports no additional cardiovascular complaints, Denies chest pain and Denies dyspnea Respiratory: Respiratory: Reports as per HPI, Denies chest congestion, Reports cough and Denies dyspnea Gastrointestinal: Gastrointestinal: Reports as per HPI, Denies abdominal pain, Reports diarrhea, Denies nausea and Denies vomiting Musculoskeletal: Musculoskeletal: Reports no additional musculoskeletal complaints Integumentary/Breasts: Skin/Breast: Reports system reviewed and no additional complaints, except as docu Neurologic: Reports system reviewed and no additional complaints, except as documented Psychiatric: Psychiatric: Reports no additional psychiatric complaints Allergic/Immunologic: Allergic/Immunologic: Reports no additional allergic/immunologic complaints PMFSH Past Medical History Medical History Acid reflux Asthma Depression Diabetes Hyperlipidemia Hypothyroid Obstructive sleep apnea Family History Family History Other Family history non-contributory Social History Social History Smoking status: Former smoker Alcohol intake: never Substance use: current Substance use type: marijuana Comments At the time of my signature, I reviewed and agree with the nursing past medical, surgical, social, and family history. There is no relevant family history pertinent to the patient complaint. Exam Const: General: cooperative, healthy appearing, comfortable, no acute distress, well developed, alert and well nourished Nutritional Appearance: well nourished and obese Orientation/consciousness: patient oriented x3 Limitations: no limitations HENMT: Head: normal to inspection
== END 2024-02-22 09:45 | disposition home or self-care (01) ==
PROVIDERS: Emergency Provider Nurse Practitioner; PCP Emergency Medicine
DX: U07.1 COVID-19 (principal); Z87.891 Personal history of nicotine dependence; F12.90 Cannabis use, unspecified, uncomplicated; K21.9 Gastro-esophageal reflux disease without esophagitis; J45.909 Unspecified asthma, uncomplicated; E11.9 Type 2 diabetes mellitus without complications; E78.5 Hyperlipidemia, unspecified; E03.9 Hypothyroidism, unspecified; F32.A Depression, unspecified
CPT/HCPCS: 87426; 99213; G0463

== ENCOUNTER 2024-05-06 12:58 | Emergency (ER) | payer OTHER, SELFPAY ==
--- NOTE | ~2024-05-06 | XR_ITS ---
CHEST RADIOGRAPH, PA AND LATERAL CLINICAL HISTORY: cough, sob, wheezing . COMPARISON: 02/21/2024 TECHNIQUE: PA and lateral views of the chest. FINDINGS The cardiomediastinal silhouette is unremarkable. Peribronchial thickening is identified, increased from prior. The lungs are otherwise clear. Visualized osseous structures and soft tissues are unremarkable. IMPRESSION: Peribronchial thickening, without focal infiltrate or effusion. Reviewed, dictated and finalized at location A.
[2024-05-06 13:09] VITALS: BP 132/71; PULSE 87; RESP 20; TEMP 36.3; O2SAT 96
--- NOTE | 2024-05-06 13:09 | ED.URI ---
HPI - URI/Sore Throat General Chief Complaint: Upper Respiratory Infection Stated Complaint: Cough Time Seen by Provider: 05/06/24 13:15 Source: patient Mode of arrival: ambulatory Limitations: no limitations History of Present Illness HPI Narrative: Marlon is a 38-year-old male patient presenting to the clinic today with complaints of cough and shortness of breath x1 week. He reports he is coughing up some brown phlegm. He is a current smoker. Denies any chest pain. MD elicited complaint: cough and other (Shortness of breath) Related Data Home Medications Medication Instructions Recorded Confirmed clonidine HCl 0.1 mg tablet 0.1 mg PO DAILY 11/09/20 05/06/24 bupropion HCl 300 mg 24 hr tablet, 300 mg PO DAILY 10/30/23 05/06/24 extended release ergocalciferol (vitamin D2) 1,250 1 unit PO WEEKLY 10/30/23 05/06/24 mcg (50,000 unit) capsule fluticasone propionate 50 1 spray intranasal BID 10/30/23 05/06/24 mcg/actuation nasal spray,suspension gabapentin 400 mg capsule 400 mg PO TID 10/30/23 05/06/24 sertraline 100 mg tablet 100 mg PO DIRECTED 10/30/23 05/06/24 benztropine 1 mg tablet 1 mg PO DIRECTED 02/22/24 05/06/24 lamotrigine 200 mg tablet 200 mg PO DAILY 02/22/24 05/06/24 naltrexone microspheres 380 mg 4 mg IM DIRECTED 02/22/24 05/06/24 intramuscular suspension,extended release (Vivitrol) Allergies Allergy/AdvReac Type Severity Reaction Status Date / Time amoxicillin [From Augmentin] Allergy Rash Verified 05/06/24 13:27 clavulanic acid Allergy Rash Verified 05/06/24 13:27 [From Augmentin] Sulfa (Sulfonamide Allergy Rash Verified 05/06/24 13:27 Antibiotics) vancomycin Allergy Rash Verified 05/06/24 13:27 Review of Systems Review of Systems: Pertinent positives per HPI. Patient denies any fever, chills, rash, headache, visual changes, dizziness, chest pain, palpitations, nausea, vomiting, diarrhea, constipation, abdominal pain, or any urinary issues. PMFSH Past Medical History Medical History Acid reflux Asthma Depression Diabetes Hyperlipidemia Hypothyroid Obstructive sleep apnea Family History Family History Other Family history non-contributory Social History Social History Smoking status: Former smoker Alcohol intake: never Substance use: current Substance use type: marijuana Comments At the time of my signature, I reviewed and agree with the nursing past medical, surgical, social, and family history. There is no relevant family history pertinent to the patient complaint. Exam Narrative: General: Well-developed, well nourished, in no apparent distress Head: Normocephalic, atraumatic Eyes: Pupils equally round and reactive to light bilaterally, EOM intact, sclera and conjunctive clear, no discharge, lids normal Ears: TMs intact and clear, ear canals clear, no drainage, grossly hearing normal. Nose: Nares patent, clear nasal discharge, no inflammation, no sinus tenderness. Mouth: Oral pharynx red without lesions or masses, good dentition, MMM. Neck: Supple, trachea midline, no enlargement of anterior or posterior cervical nodes, no thyroid masses or goiter palpable. Cardio: Regular rate and rhythm, s1 and s2 normal, no murmur appreciated. Resp: Expiratory wheezing throughout lung dubon, no rhonchi, rales, wheezing or rubs Course Course Emergency Course: Portions of this record may have been created with voice recognition software. Level of Care: Express Care Visit Vital Signs Vital signs: Vital signs reviewed MDM - URI/Sore Throat MDM Narrative Medical decision making narrative: At the time of visit patient is resting comfortably on the exam table. Patient appears to be nontoxic. Labs: COVID and influenza testing was negative in the clinic today. Diag
[2024-05-06 13:26] LABS: EDCOVIDSCREEN Negative (Negative); EDINFLUASCREEN Negative (Negative); EDINFLUBSCREEN Negative (Negative)
[2024-05-06] MEDS: IPRATROPIUM 0.5 MG/ALBUTEROL SULFATE 2.5 MG AMPUL.NEB 3 ML INHALATION (13:46)
== END 2024-05-06 14:23 | disposition home or self-care (01) ==
PROVIDERS: Emergency Provider Nurse Practitioner Family; PCP Emergency Medicine
DX: J40 Bronchitis, not specified as acute or chronic (principal); Z20.822 Contact with and (suspected) exposure to COVID-19; Z87.891 Personal history of nicotine dependence; K21.9 Gastro-esophageal reflux disease without esophagitis; E11.9 Type 2 diabetes mellitus without complications; E78.5 Hyperlipidemia, unspecified; E03.9 Hypothyroidism, unspecified; F32.A Depression, unspecified
CPT/HCPCS: 71046; 87426; 87804; 94640; 99213; G0463

== ENCOUNTER 2024-11-09 13:52 | Emergency (ER) | payer MEDICARE, MEDICAID, SELFPAY ==
[2024-11-09 13:55] VITALS: BP 118/73; PULSE 102; RESP 19; TEMP 36.4; O2SAT 96
[2024-11-09 14:08] VITALS: PULSE 102; RESP 19; O2SAT 96
--- NOTE | 2024-11-09 14:13 | ED_ITS ---
HPI - URI/Sore Throat General Chief Complaint: Upper Respiratory Infection Stated Complaint: SOB Time Seen by Provider: 11/09/24 14:00 Source: patient Mode of arrival: ambulatory Limitations: no limitations History of Present Illness HPI Narrative: Marlon is a 39-year-old male patient presenting to the clinic today with complaints of uvula swelling and difficulty breathing. He reports his symptoms started this morning when he woke up. States he has had this before and had to come in to get a steroid shot. He denies any fevers, chills, body aches. Feels as though his uvula so swollen he can not take a deep breath. Denies any chest pain. No URI symptoms. He does not take any new medications-not on any Tigre or Arb blood pressure medication Related Data Home Medications ?Medication ?Instructions ?Recorded ?Confirmed ?Last Taken ?Type clonidine HCl 0.1 mg tablet 0.1 mg PO DAILY 11/09/20 05/06/24 Unknown History bupropion HCl 300 mg 24 hr tablet, 300 mg PO DAILY 10/30/23 05/06/24 Unknown History extended release ergocalciferol (vitamin D2) 1,250 1 unit PO WEEKLY 10/30/23 05/06/24 Unknown History mcg (50,000 unit) capsule gabapentin 400 mg capsule 400 mg PO TID 10/30/23 05/06/24 Unknown History sertraline 100 mg tablet 100 mg PO DIRECTED 10/30/23 05/06/24 Unknown History benztropine 1 mg tablet 1 mg PO DIRECTED 02/22/24 05/06/24 Unknown History lamotrigine 200 mg tablet 200 mg PO DAILY 02/22/24 05/06/24 Unknown History naltrexone microspheres 380 mg 4 mg IM DIRECTED 02/22/24 05/06/24 Unknown History intramuscular suspension,extended release (Vivitrol) Allergies Allergy/AdvReac Type Severity Reaction Status Date / Time amoxicillin (From Augmentin) Allergy Rash Verified 11/09/24 13:57 clavulanic acid (From Allergy Rash Verified 11/09/24 13:57 Augmentin) Sulfa (Sulfonamide Allergy Rash Verified 11/09/24 13:57 Antibiotics) vancomycin Allergy Rash Verified 11/09/24 13:57 Review of Systems Review of Systems: Pertinent positives per HPI. Patient denies any fever, chills, rash, headache, visual changes, dizziness, cough, shortness of breath, chest pain, palpitations, nausea, vomiting, diarrhea, constipation, abdominal pain, or any urinary issues. [facility] Past Medical History Medical History Acid reflux Asthma Depression Diabetes Hyperlipidemia Hypothyroid Obstructive sleep apnea Family History Family History Other Family history non-contributory Social History Social History Smoking status: Former smoker Alcohol intake: never Substance use: current Substance use type: marijuana Comments At the time of my signature, I reviewed and agree with the nursing past medical, surgical, social, and family history. There is no relevant family history pertinent to the patient complaint. Exam Narrative: General: Well-developed, morbidly obese, in no apparent distress Head: Normocephalic, atraumatic Eyes: Pupils equally round and reactive to light bilaterally, EOM intact, sclera and conjunctive clear, no discharge, lids normal Ears: TMs intact and clear, ear canals clear, no drainage, grossly hearing normal. Nose: Nares patent, no discharge, no inflammation, no sinus tenderness. Mouth: Oral pharynx red with swelling of the uvula, without lesions or masses, good dentition, MMM. Mallampati Class 2, even rise and fall of the uvula, no visualize peritonsillar abscess Neck: Supple, trachea midline, no enlargement of anterior or posterior cervical nodes, no thyroid masses or goiter palpable. Cardio: Regular rate and rhythm, s1 and s2 normal, no murmur appreciated. Resp: Clear to auscultation bilaterally, no rhonchi, rales, wheezing or rubs Course Course Emergency Course: Portions of this record may have been created with voice recognition software. Level of Care: Express Care Visit Vital Signs Vital signs: Vital Signs Temperature 36.4 C L 11/09/24 13:55 Pulse Rate 102 H 11/09/24 13:55 Respiratory Rate 19 11/09/24 13:55 Blood Pressure 118/73 11/09/24 13:55 Pulse Oximetry 96 11/09/24 13:55 Oxygen Delivery Room Air 11/09/24 13:55 Temperature 36.4 C L 11/09/24 13:55 Pulse Rate 102 H 11/09/24 13:55 Respiratory Rate 19 11/09/24 13:55 Blood Pressure 118/73 11/09/24 13:55 Pulse Oximetry 96 11/09/24 13:55 Oxygen Delivery Room Air 11/09/24 13:55 Vital signs reviewed MDM - URI/Sore Throat MDM Narrative Medical decision making narrative: At the time of visit patient is resting comfortably on the exam table. Patient appears to be nontoxic. No signs of respiratory distress Labs: Strep test was obtained and negative in the clinic today. We will send strep for culture. Medications: Dexamethasone 10 mg IM given in the clinic today Plan: Patient denies any difficulty swallowing, drooling, facial swelling, or tongue swelling. Does have uvula swelling with red pharynx. No sign of peritonsillar tonsillar abscess-normal rise and fall of uvula. I suspect patient has uvulitis/pharyngitis. Strep test was negative. Dexamethasone 10 mg IM given in the clinic today and will send in prescription for oral prednisone for the patient to start tomorrow. Supportive measures were discussed with the patient and they voiced understanding discharge instructions and agrees to treatment plan. Return precautions reviewed Differential Diagnosis Differential diagnosis: Likely upper respiratory infection, otitis media, sinusitis, viral infection, bronchitis, influenza, pharyngitis and other (Uvulitis, pharyngitis, angioedema, allergic reaction, peritonsillar abscess) Discharge Plan Discharge Clinical Impression: Swollen uvula, Pharyngitis Patient Disposition: Home Condition: Stable Instructions: Antibiotic Form, Pharyngitis (ED), Uvulitis (ED) Additional Instructions: Strep test was negative in the clinic today. We will send strep for culture. Take prescription medications only as [id number] tomorrow- 11/10/24 Decadron 10 mg IM given in the clinic today May take Benadryl 25-50 mg every 6 hours as needed for swelling Increase fluids and stay well hydrated Tylenol/motrin for pain/fever Cepacol spray, cough drops, throat lozenges, warm tea with honey/lemon, gargle salt water to soothe throat Go to the ED if you develop a worsening in your condition- high fever not controlled by Tylenol or Motrin, dehydration, weakness, lethargy, difficulty breathing, increase in swelling, shortness of breath, drooling, or chest pain. Follow up with your PCP in 3-5 days if symptoms persist. Patient Language: Albanian Prescriptions: New prednisone 10 mg tablet 10 mg PO DAILY Qty: 30 0RF Rx Instructions: 60mg po daily on day 1, 40mg po daily on days 2-4, 30mg po daily on days 5-6, 20mg po daily on days 7-8, 10mg po daily on days 9-10 No Action gabapentin 400 mg capsule 400 mg PO TID sertraline 100 mg tablet 100 mg PO DIRECTED ergocalciferol (vitamin D2) 1,250 mcg (50,000 unit) capsule 1 unit PO WEEKLY bupropion HCl 300 mg tablet extended release 24 hr 300 mg PO DAILY lamotrigine 200 mg tablet 200 mg PO DAILY benztropine 1 mg tablet 1 mg PO DIRECTED Vivitrol 380 mg suspension,extended rel recon 4 mg IM DIRECTED cetirizine 10 mg tablet 10 mg PO DAILY Qty: 30 0RF fluticasone propionate [Flonase Allergy Relief] 50 mcg/actuation spray,suspension 2 spray intranasal DAILY Qty: 16 0RF Rx Instructions: administer into each nostril albuterol sulfate 90 mcg/actuation HFA aerosol inhaler 2 puff inhalation Q4-6H PRN (Reason: shortness of breath or wheezing) 30 Days Qty: 8.5 0RF clonidine HCl 0.1 mg tablet 0.1 mg PO DAILY Follow-up/Referrals: Peter Hagen MD [Primary Care Provider] - Time of Disposition: 14:30 Quality NIHSS Nursing Documentation ED NIHSS nursing documentation: reviewed/agree
[2024-11-09] MEDS: dexAMETHasone SOD PHOS INJ 10 MG/ML 1 ML VIAL IM (14:19)
[2024-11-09 14:22] LABS: EDSTREPNEGPOS1 Negative (Negative)
== END 2024-11-09 14:35 | disposition home or self-care (01) ==
PROVIDERS: Emergency Provider Nurse Practitioner Family; PCP Emergency Medicine
DX: J02.9 Acute pharyngitis, unspecified (principal); E78.5 Hyperlipidemia, unspecified; E03.9 Hypothyroidism, unspecified; E11.9 Type 2 diabetes mellitus without complications; Z87.891 Personal history of nicotine dependence
CPT/HCPCS: 87081; 87880; 99213; G0463; J1100